=== PATIENT | female | born 1970 | race Caucasian/White ===

== ENCOUNTER → 2016-12-11 | Day surgery (SDC) | payer OTHER ==
[~2016-12-11] VITALS: Ht 162.6 cm; Wt 85.7 kg
[~2016-12-11] MED LIST: 0.9% Sodium Chloride 1,000 ML IV PRN; CYAN1TAB42 PO; ERGO2000 PO; LISI-567 PO; METO25TA6 PO; RANI150C4 PO; Sodium Chloride LOK Flush 10 mL Syringe IV PRN; TAMS0.4C98 PO; fentaNYL-PF 50 mCg/mL 2 mL Inj IVPUSH PRN
[2016-12-11 13:43] VITALS: BP 130/88; PULSE 90; RESP 16; O2SAT 97
[2016-12-11 16:02] VITALS: BP 112/69; PULSE 83; RESP 14; O2SAT 96
[2016-12-11 16:09] VITALS: BP 113/76; PULSE 83; RESP 14; O2SAT 96
--- NOTE | 2016-12-11 19:33 | ENDO ---
[address] [address] ENDOSCOPY PROCEDURE PATIENT: THONG GURROLA : 1970 MR#: [id number] ADMIT: 12/11/2016 JOB ID: [id number] PROCEDURE: Colonoscopy. INDICATIONS: Suspected Crohn disease. Patient's ASA classification is I. Mallampati score is II. MEDICATIONS: Versed 7 mg, fentanyl 150 mcg. INSTRUMENT USED: PCF-H180AL PREP QUALITY: Good. PROCEDURE DETAILS: After informed consent was obtained, the patient was brought into the GI suite, where she was placed on oxygen via nasal cannula and monitored with continuous pulse oximeter, telemetry, and blood pressure monitoring. A time-out was performed. Then, she was placed in a left lateral decubitus position. Medications were administered for sedation. Digital rectal exam was performed, which was unremarkable. The colonoscope was then inserted into the rectum and advanced under direct visualization to the cecum, which was identified by the presence of the ileocecal valve and appendiceal orifice. Once the cecum was reached, the terminal ileum was intubated, which was identified by the presence of the ileocecal valve and villous-appearing mucosa of the terminal ileum. From the terminal ileum, the colonoscope was then withdrawn back into the rectum as the mucosa and lumen were examined. In the rectum, retroflexion was performed. Following retroflexion, remaining air in the rectum was suctioned and procedure was completed. FINDINGS: 1. Normal-appearing terminal ileum. 2. Normal colon mucosa from rectum to cecum. 3. Scattered diverticula were seen throughout the left side of the colon. IMPRESSION: Left-sided diverticulosis. RECOMMENDATIONS: 1. Fiber-rich diet. 2. Follow up in GI clinic as needed. COMPLICATIONS: None. ESTIMATED BLOOD LOSS: Zero. CC: Thor Hollingsworth PA-C
--- NOTE | 2016-12-11 19:43 | ENDO ---
[address] [address] ENDOSCOPY PROCEDURE PATIENT: THONG GURROLA : 1970 MR#: [id number] ADMIT: 12/11/2016 JOB ID: [id number] Procedure: Colonoscopy. INDICATION: Patient with suspected Crohn disease. Patient's ASA classification is I. Mallampati score is II. MEDICATIONS: Versed 7 mg, fentanyl 150 mcg. INSTRUMENT USED: PCF-H180AL. PREP QUALITY: Good. PROCEDURE DETAILS: After informed consent was obtained, the patient was brought into the GI suite, where she was placed on oxygen via nasal cannula and monitored with continuous pulse oximeter, telemetry, and blood pressure monitoring. A time-out was performed. Then, she was placed in the left lateral decubitus position and medications were administered for sedation. Digital rectal exam was performed which was unremarkable. The colonoscope was then inserted into the rectum and advanced under direct visualization to the cecum, which was identified by the presence of the ileocecal valve and appendiceal orifice. Once the cecum was reached, the terminal ileum was intubated, which was identified by the presence of the ileocecal valve and villous-appearing mucosa of the terminal ileum. From the terminal ileum, the colonoscope was then withdrawn back into the rectum and the mucosa and lumen were examined. In the rectum, retroflexion was performed. Following retroflexion, remaining air in the rectum was suctioned, and procedure was completed. FINDINGS: Scattered diverticula were seen throughout the left side of the colon. Otherwise, normal- appearing mucosa from rectum to terminal ileum. IMPRESSION: Left-sided diverticulosis. RECOMMENDATIONS: 1. Fiber-rich diet. 2. Follow up in GI clinic as needed. COMPLICATIONS: None. ESTIMATED BLOOD LOSS: Less than zero.
== END | disposition home or self-care (01) ==
LOC: END 00:45
PROVIDERS: ATTEND Internal Medicine Gastroenterology
DX: K50.90 Crohn's disease, unspecified, without complications (principal); K57.30 Diverticulosis of large intestine without perforation or abscess without bleeding; I10 Essential (primary) hypertension; E78.5 Hyperlipidemia, unspecified; E55.9 Vitamin D deficiency, unspecified
CPT/HCPCS: 45378; 99153; G0500; J2250; J3010; J7030